=== PATIENT | male | born 1990 | race Hispanic/Latino ===

== ENCOUNTER 2023-08-22 14:18 | Outpatient (CLI) | payer OTHER | END 2023-08-22 14:19 | disposition home or self-care (01) | LOC: MADRAD 14:18 | PROVIDERS: ATTEND Registered Nurse | DX: S93.401A Sprain of unspecified ligament of right ankle, initial encounter (principal) ==

== ENCOUNTER 2024-08-15 15:44 | Emergency (ER) | payer OTHER ==
[2024-08-15] MEDS ORDERED: Lidocaine 4% Patch ONE (16:12)
[2024-08-15] MEDS ORDERED: methylPREDNISolone Sod Succ/PF 125 MG/2 ML VIAL ONE (16:12)
[2024-08-15] MEDS ORDERED: Ketorolac Tromethamine 60 MG/2 ML VIAL ONE (16:12)
== END 2024-08-15 17:20 | disposition home or self-care (01) ==
LOC: MADERS 15:44
DX: S39.012A Strain of muscle, fascia and tendon of lower back, initial encounter (principal); X50.3XXA Overexertion from repetitive movements, initial encounter; Y99.0 Civilian activity done for income or pay
CPT/HCPCS: 72100; 96372; 99283; J1885; J2919

== ENCOUNTER 2024-11-29 17:11 | Outpatient (CLI) | payer OTHER | END 2024-11-29 17:12 | disposition home or self-care (01) | LOC: MADRAD 17:11 | PROVIDERS: ATTEND Nurse Practitioner Family | DX: R06.02 Shortness of breath (principal) | CPT/HCPCS: 71046 ==